=== PATIENT | male | born 1990 | race Caucasian/White ===

== ENCOUNTER 2017-09-22 14:15 | Emergency (ER) | payer OTHER ==
[~2017-09-22] VITALS: Ht 182.9 cm; Wt 117.9 kg
[2017-09-22] MEDS ORDERED: Ultram50 MG PO (15:30)
[2017-09-22] MEDS ORDERED: Robaxin500 MG PO (15:30)
[2017-09-22] MEDS ORDERED: Prednisone20 MG PO (15:30)
== END 2017-09-22 15:40 | disposition home or self-care (01) ==
LOC: ER 14:15
DX: M54.16 Radiculopathy, lumbar region (principal); Z79.52 Long term (current) use of systemic steroids; Z79.899 Other long term (current) drug therapy
CPT/HCPCS: 99282

== ENCOUNTER 2020-10-13 10:41 | Emergency (ER) | payer OTHER ==
[~2020-10-13] VITALS: Ht 182.9 cm; Wt 117.9 kg
[~2020-10-13 10:41] MED LIST: Prednisone20 MG PO; Robaxin500 MG PO; Ultram50 MG PO
[2020-10-13] MEDS ORDERED: ESCI10 PO (10:56)
[2020-10-13] MEDS ORDERED: Amphetamine Sal30 MG PO (10:57)
[2020-10-13 13:31] LABS: BASOPHILS ABSOLUTE AUTO 0.03 K/mm3 (0.00-0.23); BASOPHILS PERCENT AUTO 0 % (0-2); EOSINOPHILS ABSOLUTE AUTO 0.23 K/mm3 (0.00-0.68); EOSINOPHILS PERCENT AUTO 3 % (0-6); Hematocrit 52.9 % (37.0-53.0); IMMATURE GRAN ABSOLUTE AUTO 0.01 K/mm3 (0.00-0.10); IMMATURE GRAN PERCENT AUTO 0 % (0-1); LYMPHOCYTES ABSOLUTE AUTO 1.91 K/mm3 (0.84-5.20); LYMPHOCYTES PERCENT AUTO 22 % (21-46); MONOCYTES ABSOLUTE AUTO 0.81 K/mm3 (0.16-1.47); MONOCYTES PERCENT AUTO 10 % (4-13); Mean Corpuscular Volume 91 fL (80-100); Mean Platelet Volume 11.9 fL (9.1-12.4); NEUTROPHILS ABSOLUTE AUTO 5.52 K/mm3 (1.96-9.15); NEUTROPHILS PERCENT AUTO 65 % (41-73); Platelet Count 238 K/mm3 (150-400); RDW Coefficient Variation 12.7 % (11.7-14.2); White Blood Cell Count 8.51 K/mm3 (4.00-11.30)
[2020-10-13 13:54] LABS: Alanine Aminotransfer (ALT/SGP 46 U/L (12-78); Albumin, Blood 3.7 g/dL (3.4-5.0); Albumin/Globulin Ratio 1.2 (0.8-1.8); Alk Phos 80 U/L (50-136); Anion Gap 3 mmol/L (6-16); Aspartate Aminotrans (AST/SGOT 22 U/L (12-37); Bilirubin, Total 0.3 mg/dL (0.1-1.0); Blood Urea Nitrogen 5 mg/dL (8-24); Bun/Creatinine Ratio 7.1 (12.0-20.0); CO2, Blood 27 mmol/L (21-32); Calcium, Blood 8.9 mg/dL (8.5-10.1); Chloride, Blood 110 mmol/L (98-108); Creatinine, Blood 0.71 mg/dL (0.60-1.20); Globulin, Blood 3.2 g/dL (2.2-4.0); Glomerular Filtration Rate >60 (60-); Glucose, Blood 106 mg/dL (70-99); Potassium, Blood 3.8 mmol/L (3.5-5.5); Sodium, Blood 140 mmol/L (136-145); Total Protein, Blood 6.9 g/dL (6.4-8.2)
[2020-10-13 16:08] LABS: U Amphetamine Screen DETECTED; U Barbituate Screen Not Detected; U Benzodiazapine Screen Not Detected; U Buprenorphine Screen Not Detected; U Cannabinoids Screen DETECTED; U Cocaine Screen Not Detected; U Methadone Screen Not Detected; U Methamphetamine Screen Not Detected; U Opiates Screen Not Detected; U Oxycodone Screen Not Detected; U Phencyclidine Screen Not Detected; U Propoxyphene Screen Not Detected
== END 2020-10-13 14:45 | disposition home or self-care (01) ==
LOC: ER 10:41
PROVIDERS: Emergency Medicine
DX: F22 Delusional disorders (principal); F17.210 Nicotine dependence, cigarettes, uncomplicated; F90.9 Attention-deficit hyperactivity disorder, unspecified type
CPT/HCPCS: 36415; 80053; 85025; 99284

== ENCOUNTER 2020-10-25 23:40 | Emergency (ER) | payer OTHER ==
[~2020-10-25] VITALS: Ht 182.9 cm; Wt 122.5 kg
[~2020-10-25 23:40] MED LIST changes: +Amphetamine Sal30 MG PO; +ESCI10 PO
[2020-10-26 04:03] LABS: Source, Urine Clean Catch
[2020-10-26 04:08] LABS: Bilirubin, Urine Neg (Neg); Blood, Urine Neg (Neg); Glucose Qualitative, Urine Neg (Neg); Ketones, Urine 2+ (Neg); Leukocyte Esterase, Urine 1+ (Neg); Nitrite, Urine Neg (Neg); Protein, Urine 2+ (Neg); Specific Gravity, Urine 1.025 (1.003-1.022); Urobilinogen, Urine 1+ (Normal)
[2020-10-26 04:18] LABS: Amorphous Light (0-Heavy); Appearance, Urine Hazy (Clear); Bacteria Rare /hpf; Color, Urine Yellow (P-Yellow); Mucus Heavy (0-Heavy); Red Blood Cells, Urine Not Seen /hpf (0-2); Squamous Epithelial Cells Rare /hpf (Few); White Blood Cells, Urine Rare /hpf (0-5)
== END 2020-10-26 05:06 | disposition home or self-care (01) ==
LOC: ER 23:40
PROVIDERS: Emergency Medicine
DX: N50.812 Left testicular pain (principal); F17.210 Nicotine dependence, cigarettes, uncomplicated
CPT/HCPCS: 76870; 81001; 99284-25; A9270

== ENCOUNTER 2020-12-01 19:39 | Emergency (ER) | payer OTHER ==
[~2020-12-01] VITALS: Ht 182.9 cm; Wt 109.8 kg
== END 2020-12-01 22:58 | disposition home or self-care (01) ==
LOC: ER 19:39
DX: S20.212A Contusion of left front wall of thorax, initial encounter (principal); M25.512 Pain in left shoulder; M25.511 Pain in right shoulder; V49.40XA Driver injured in collision with unspecified motor vehicles in traffic accident, initial encounter; Y92.410 Unspecified street and highway as the place of occurrence of the external cause
CPT/HCPCS: 71045; 73030; 99284-25